=== PATIENT | male | born 1975 | race Caucasian/White ===

== ENCOUNTER 2025-01-03 15:53 | Day surgery (SDC) | payer SELFPAY ==
[2025-01-03] VITALS (12 sets, daily range): BP systolic 124–149; BP diastolic 66–89; PULSE 62–80; RESP 16–20; TEMP 36.4–37.4; O2SAT 94–98; BMI 28.5
--- OUTSIDE RECORDS SUMMARY | 2025-01-03 15:55 | XMS_ITS | Clinical Summary ---
Author Organization [facility] Address [address] [place] [id number] Care Team Providers Care Cat Dog Or Other Pet Groomer Name Role Phone Pcp, No Primary Care Provider Unavailabl e Allergies No known active allergies Medications CPAPIndications :Obstructive sleep apnea (adult) (pediatric) autoCPAP, heated humidifier, mask, headgear, filters and tubing. 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 Gender Identity Not on file Sexual Orientation Not on file Obstetrics History Last Filed Vital Signs Vital Sign Reading Time Taken Comments Blood Pressure 122/77 12/18/2016 4:49 PM CDT Pulse 71 12/18/2016 4:49 PM CDT Temperature 36.6 C (97.8 F) 12/18/2016 4:49 PM CDT Respiratory Rate - - Oxygen Saturation 97% 12/18/2016 4:49 PM CDT Inhaled Oxygen Concentration - - Weight 81.8 kg (180 lb 6.4 oz) 12/18/2016 4:49 P M CDT Height 179 cm (5' 10.47) 12/18/2016 4:49 PM CDT Body Mass Index 25.54 12/18/2016 4:49 PM CDT Plan of Treatment Health Maintenance Due Date Last Done Comments HIV for age 15-65 12/02/1991 Hepatitis C screening for ag e 18-79 1994 Hepatitis B series for 19+ ( 1 of 3 - 19+ 3-dose series) 12/02/1995 BMI (ht and wt on same day) for age 18+ 12/18/2017 12/18/2016 Depression screening for age 12+ 12/18/2017 12/19/19 17 Colonoscopy through age 75 2021 Lipids for age 45-75 2021 COVID-19 vaccine series ( - 2023- season) 2024 Tetanus booster 01/23/2024 01/22/2014 Influenza Vaccine (#1) 2025 Pneumococcal series for age 6-49 Aged Out No longer eligible based on patient's age to complete this topic Care Teams Cat Dog Or Other Pet Groomer Relationship Specialty Start Date End Date Pcp, No . PCP - General 10/11/20
--- NOTE | 2025-01-03 16:13 | ED.ABDPAIN ---
HPI - Abdominal Pain General Time Seen by Provider: 16:13 Date Seen: 01/03/25 Chief Complaint: Abdominal Pain Stated Complaint: Abd pain Time Seen by Provider: 01/03/25 16:13 Source: patient, family and RN notes reviewed Mode of arrival: ambulatory Limitations: no limitations History of Present Illness HPI narrative: Froylan is a very pleasant 49-year-old male previously healthy with no history of abdominal surgeries who notes the onset of abdominal pain last evening after eating pizza. Patient had had a normal day, no trauma but after eating pizza had discomfort pressure type sensation around his belly button. This continued overnight and is occasionally associated with nausea but no vomiting, no fever and no diarrhea. He did have a bowel movement early this morning but it did not really change the pain. Now he has pain in the right lower quadrant that he describes as sure. He has not had any bulging in the abdomen. Denies a history of cough cold congestion fever chills, tobacco use, alcohol use or drug use. Personal or family history of problems with anesthesia. Denies any recent chest pain. Related Data Home Medications ?Medication ?Instructions ?Recorded ?Confirmed No Known Home Medications 01/03/25 01/03/25 Allergies Allergy/AdvReac Type Severity Reaction Status Date / Time No Known Drug Allergies Allergy Verified 01/03/25 16:11 Review of Systems Status of ROS Reports: 10 or more systems reviewed and unremarkable except as noted in History and below Const Denies: fever, chills or fatigue Eyes Denies: change in vision ENMT Denies: throat pain, neck pain or nasal congestion Cardio Denies: chest pain, swelling of feet/ankles or shortness of breath with exertion Resp Denies: shortness of breath or cough GI Reports: abdominal pain and nausea; Denies: vomiting, diarrhea or blood in stool Denies: painful urination, urinary frequency, urinary urgency or blood in urine Musculo Denies: neck pain Neuro Denies: headache Endo Denies: fatigue PFSH PFSH Social History Smoking Status: Never smoker How often do you have a drink containing alcohol: monthly or less How many standard drinks containing alcohol do you have on a typical day: 1 or 2 How often do you have six or more drinks on one occasion: Never AUDIT-C Alcohol total score: 1 Non-prescribed substance use: denies use service: No Exam Narrative: Exam Narrative: Froylan is alert and oriented no acute distress. Head is atraumatic normocephalic. Face symmetrical. Oral cavity moist mucous membranes. Dentition intact. Posterior oropharynx visualized. External ears eyes nose clear. Heart with regular rate and rhythm and lungs are clear to auscultation. Abdomen is soft. No significant tenderness with palpation around the umbilicus. Bowel sounds are present but decreased. Positive right lower quadrant tenderness with rebound. Lower extremities without edema. Pedal pulses are intact. Const: Vital Signs, click to edit/add: Vital Signs - 24 hr 01/03/25 15:59 Temperature 97.6 F Pulse Rate [Pulse Oximeter] 80 Respiratory Rate 16 Blood Pressure [Ri ght Upper Arm] 149/89 H Pulse Oximetry 98 Oxygen Delivery Me thod Room Air Documenting provider has reviewed patient's vital signs: yes Course Course ED Course: Differential diagnosis includes but is not limited to appendicitis, diverticulitis, colitis, internal hernia, viral gastroenteritis, kidney stone/ureteral colic, UTI. Will place IV in use Toradol 15 mg and Zofran 4 mg for comfort. 1 L of normal saline is also ordered. Plan on CBC, comprehensive panel, urinalysis, lipase, lactate, CRP as well as abdominal CT. Reevaluation(s) Reevaluation #1: Abdominal CT appears to show acute appendicitis. Have ordered EKG and chest x-ray as I suspect this gentleman will need to go to the OR. However, patient is under 50 years of age, has no history of asthma, tobacco use or underlying cardiac or lung problems and therefore will cancel chest x-ray. Consultations Consultation #1: Had the pleasure of speaking with Dr. Giron, our surgical pathologist, and will plan on appendectomy tomorrow morning. Unfortunately patient had a cheese stick at approximately 1515 hours. Vital Signs Vital signs: Initial Vital Signs Temperature 97.6 F 01/03/25 15:59 Temperature Source Temporal Artery Scan 01/03/25 15:59 Pulse Rate 80 01/03/25 15:59 Respiratory Rate 16 01/03/25 15:59 Blood Pressure 149/89 H 01/03/25 15:59 Blood Pressure Mean 109 H 01/03/25 15:59 Blood Pressure Position Sitting 01/03/25 15:59 Pulse Oximetry 98 01/03/25 15:59 Oxygen Delivery Method Room Air 01/03/25 15:59 Vital Signs Temperature 97.6 F 01/03/25 15:59 Pulse Rate 80 01/03/25 15:59 Respiratory Rate 16 01/03/25 15:59 Blood Pressure 149/89 H 01/03/25 15:59 Pulse Oximetry 98 01/03/25 15:59 Oxygen Delivery Method Room Air 01/03/25 15:59 Temperature 97.6 F 01/03/25 15:59 Pulse Rate 80 01/03/25 15:59 Respiratory Rate 16 01/03/25 15:59 Blood Pressure 149/89 H 01/03/25 15:59 Pulse Oximetry 98 01/03/25 15:59 Oxygen Delivery Method Room Air 01/03/25 15:59 Medications Administered Medications: Generic Name Dose Route Start Last Admin Trade Name Freq PRN Reason Stop Dose Admin Sodium Chloride 1,000 mls @ 125 mls/hr 01/03/25 18:29 01/03/25 18:44 0.9 % Sodium Chloride 1000 Ml IV 125 mls/hr .Q8H MARCELA Administration Discontinued Medications Generic Name Dose Route Start Last Admin Trade Name Freq PRN Reason Stop Dose Admin Sodium Chloride 1,000 mls @ 1,000 mls/hr 01/03/25 16:23 01/03/25 17:55 0.9 % Sodium Chloride 1000 Ml IV 01/03/25 17:22 Infused .Q1H MARCELA Infusion Piperacillin Sod/Tazobactam 100 mls @ 200 mls/hr 01/03/25 18:28 01/03/25 18:44 Sod 3.375 gm/ Sodium Chloride IVPB 01/03/25 18:29 200 mls/hr ONCE ONE Administration Ketorolac Tromethamine 15 mg 01/03/25 16:22 01/03/25 16:58 Ketorolac 15 Mg/Ml Inj IVP 01/03/25 16:23 15 mg ONCE ONE Administration Ondansetron HCl 4 mg 01/03/25 16:22 01/03/25 16:59 Ondansetron 2 Mg/Ml Inj IVP 01/03/25 16:23 4 mg ONCE ONE Administration MDM - Abdominal Pain MDM Narrative Medical decision making narrative: 1. Acute appendicitis-onset of pain last evening with increasing right lower quadrant pain today associated with leukocytosis and nausea. patient has remained stable in the emergency room. He did have a CT confirmed appendicitis with appendicoliths and dilation of the appendix to 1.2 cm. At this time he unfortunately had food coming in to the ER and therefore we will admit to the hospital, NPO after midnight, Zosyn as his antibiotic until he goes to surgery tomorrow morning. 2. Abdominal pain-improved with Toradol Zofran and fluids. 3. Disposition-admit to same-day surgery. I have spoken with surgeon Dr. Giron. Dr. Stevenson hospitalist accepts this patient. Lab Data Attestation: I reviewed the patient's lab results. Labs: Lab Results 01/03/25 Range/Units 16:22 WBC 18.03 H (4.50-11.00) K/uL RBC 5.84 (4.30-5.90) m/uL Hgb 18.3 H (13.5-17.5) gm/dL Hct 52.5 (37.0-53.0) % MCV 90 (80-100) fL MCH 31 (26-34) pg MCHC 35 (32-36) gm/dL RDW Coeff of Cj 11.7 (11.5-15.5) % Plt Count 295 (140-440) K/uL Neut % (Auto) 85.1 H (42.0-72.0) % Lymph % (Auto) 7.7 L (20-44) % [place] % (Auto) 6.6 (0.0-11.0) % Eos % (Auto) 0.2 (0.0-7.0) % Baso % (Auto) 0.2 (0.0-3.0) % Neut # (Auto) 15.30 H (1.7-7.0) K/uL Lymph # (Auto) 1.40 (0.90-2.90) K/uL [place] # (Auto) 1.20 H (0.00-0.90) K/UL Eos # (Auto) 0.00 (0.00-0.50) K/uL Baso # (Auto) 0.00 (0.00-0.30) K/uL Abs Immat Gran (auto) 0.00 (0.00-0.30) K/uL Imm/Tot Granulo (auto) 0.2 % Sodium 137 (135-149) mmol/L Potassium 3.8 (3.6-5.1) mmol/L Chloride 98 (96-114) mmol/L Carbon Dioxide 29 (20-32) mmol/L Anion Gap 10 (7-15) mEq/L BUN 12 (5-24) mg/dL Creatinine 0.8 (0.5-1.5) mg/dL Estimated Creat Clear 120.27 Estimated GFR 109 ml/min Glucose 114 (60-115) mg/dL Lactate 1.7 (0.5-1.9) mmol/L Calcium 9.8 (8.4-10.6) mg/dL Total Bilirubin 2.4 H (0.1-1.5) mg/dL AST 33 (12-35) U/L ALT 35 (4-50) U/L Alkaline Phosphatase 57 (40-150) U/L C-Reactive Protein 1.3 H (0.5-1.0) mg/dL Total Protein 8.6 H (6.0-8.3) g/dL Albumin 5.0 (3.3-5.0) g/dL Lipase 42 (23-300) U/L Urine Color Yellow (Yellow) Urine Appearance Clear (Clear) Urine pH 5.5 (5.0-8.5) Ur Specific [place] <= 1.005 (1.000-1.030) Urine Protein Negative (Negative) Urine Glucose (UA) Negative (Negative) Urine Ketones Negative (Negative) Urine Blood Trace-intact A (Negative) Urine Nitrite Negative (Negative) Urine Bilirubin Negative (Negative) Urine Urobilinogen 0.2 (0.2-1.0) Ur Leukocyte Esterase Negative (Negative) Urine RBC 2-5 A (0-2) Urine WBC 0-2 (0-5) Ur Squamous Epith Cells None (None-Few) Urine Bacteria None (None) Imaging Data CT scan - abdomen: Attestation: I have reviewed the pertinent imaging results. My impression: Appendicitis Radiologist's impression: Lower chest: Unremarkable. Liver: Unremarkable. Normal in size and attenuation. No suspicious masses. Gallbladder and bile ducts: Cholelithiasis. No inflammation or biliary ductal dilation. Pancreas: Unremarkable. No mass or inflammation. Spleen: Unremarkable. Normal in size. No masses. Adrenal glands: Unremarkable. No nodules. Kidneys: Unremarkable. No suspicious masses, stones, or hydronephrosis. GI tract: Dilated appendix measuring 1.2 cm containing appendicolith at the base. Mild periappendiceal inflammatory stranding. No perforation or evidence for abscess formation. The small and large bowel are unremarkable. Normal appendix. Vasculature: Abdominal aorta is normal in caliber. Mesenteric arteries are patent. Lymph nodes: No lymphadenopathy. Peritoneum/Abdominal Wall: Unremarkable. No free air or significant free fluid. Pelvis: Unremarkable. Bones: Left L5 pars interarticularis defect. No anterolisthesis. Otherwise, unremarkable for age. IMPRESSION: Acute uncomplicated appendicitis in the right lower quadrant. ECG Data Attestation: I personally reviewed and interpreted this ECG as follows: ECG interpretation date: 01/03/25 Interpretation: EKG by my read shows sinus rhythm at a rate of 74. No acute ST or T-wave changes. Normal QT and [place] intervals. Discharge Plan Discharge Clinical Impression: Acute appendicitis Qualifiers: Acute appendicitis type: unspecified acute appendicitis type Qualified Code(s): K35.80 - Unspecified acute appendicitis Patient Disposition: XFER to OR Condition: Improved
--- NOTE | 2025-01-03 16:22 | CRLHL7_ITS ---
For Patients: As a result of the Century Cures Act, medical imaging exams and procedure reports are released immediately into your electronic medical record. You may view this report before your referring provider. If you have questions, please contact your health care provider. INDICATION: Periumbilical pain, now right lower quadrant. TECHNIQUE: CT abdomen and pelvis acquired with 101 cc of Isovue 370 IV contrast. COMPARISON: None. FINDINGS: Lower chest: Unremarkable. Liver: Unremarkable. Normal in size and attenuation. No suspicious masses. Gallbladder and bile ducts: Cholelithiasis. No inflammation or biliary ductal dilation. Pancreas: Unremarkable. No mass or inflammation. Spleen: Unremarkable. Normal in size. No masses. Adrenal glands: Unremarkable. No nodules. Kidneys: Unremarkable. No suspicious masses, stones, or hydronephrosis. GI tract: Dilated appendix measuring 1.2 cm containing appendicolith at the base. Mild periappendiceal inflammatory stranding. No perforation or evidence for abscess formation. The small and large bowel are unremarkable. Normal appendix. Vasculature: Abdominal aorta is normal in caliber. Mesenteric arteries are patent. Lymph nodes: No lymphadenopathy. Peritoneum/Abdominal Wall: Unremarkable. No free air or significant free fluid. Pelvis: Unremarkable. Bones: Left L5 pars interarticularis defect. No anterolisthesis. Otherwise, unremarkable for age. IMPRESSION: Acute uncomplicated appendicitis in the right lower quadrant. Please note that all CT scans at this facility use dose modulation, iterative reconstruction, and/or weight-based dosing when appropriate to reduce radiation dose to as low as reasonably achievable. Dictated by Jerome Najera MD @ 01/03/2025 6:13:09 PM (Electronically Signed)
[2025-01-03 16:58] LABS: Lactate* 1.7 mmol/L (0.5-1.9)
[2025-01-03] MEDS: ONDANSETRON 2 MG/ML inj 4 MG IVP (16:59)
[2025-01-03 17:09] LABS: Hematocrit 52.5 % (37.0-53.0); Hemoglobin* 18.3 gm/dL (13.5-17.5); Immature Granulocytes Pct Auto 0.2 %; Mean Corpuscular HGB Conc 35 gm/dL (32-36); Mean Corpuscular Hemoglobin 31 pg (26-34); Mean Corpuscular Volume 90 fL (80-100); RDW Coefficient of Variation % 11.7 % (11.5-15.5); Red Blood Count 5.84 m/uL (4.30-5.90); White Blood Count* 18.03 K/uL (4.50-11.00)
[2025-01-03 17:12] LABS: Immature Granulocytes Abs Auto 0.00 K/uL (0.00-0.30); Lymphocytes Absolute Auto 1.40 K/uL (0.90-2.90); Slide Review Reflex No
[2025-01-03 17:13] LABS: Albumin* 5.0 g/dL (3.3-5.0); Chloride* 98 mmol/L (96-114)
[2025-01-03 17:14] LABS: Potassium* 3.8 mmol/L (3.6-5.1); Sodium* 137 mmol/L (135-149)
[2025-01-03 17:16] LABS: Alanine Aminotransferase* 35 U/L (4-50); Aspartate Amino Transferase* 33 U/L (12-35); Blood Urea Nitrogen* 12 mg/dL (5-24); Creatinine* 0.8 mg/dL (0.5-1.5); Est. Creatinine Clearance* 120.27; Estimated Glomerular Filt Rate 109 ml/min
[2025-01-03 17:17] LABS: Alkaline Phosphatase* 57 U/L (40-150); Anion Gap 10 mEq/L (7-15); Bilirubin Total* 2.4 mg/dL (0.1-1.5); Calcium* 9.8 mg/dL (8.4-10.6); Carbon Dioxide* 29 mmol/L (20-32); Glucose* 114 mg/dL (60-115); Total Protein* 8.6 g/dL (6.0-8.3)
[2025-01-03 18:10] LABS: Appearance Urine Clear (Clear)
[2025-01-03] MEDS: PIPERACILLIN/TAZOBACTAM 3.375 GM in 0.9 % SODIUM CHLORIDE Mini-bag 100 ML IVPB (18:44)
--- NOTE | 2025-01-03 20:46 | P.GSHP_ITS ---
History of Present Illness History of Present Illness Date Seen: 01/03/25 Chief complaint: Abd pain Narrative: Froylan Castañeda is a 49 year old male who presented to the emergency department with 24 hours worsening abdominal pain. The pain will come up at 3:00 a.m. from sleep. It started as generalized discomfort in his abdomen. Throughout the day began to worsen and moved to the right side. He has never had pain like this before. He does report a decrease in appetite. No nausea or vomiting. He is having regular bowel movements. He has never had surgery before. Patient is otherwise healthy. 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 Review of Systems Status of ROS: Reports: 10 or more systems reviewed and unremarkable except as noted in History and below [facility] Social History Smoking Status: Never smoker How often do you have a drink containing alcohol: monthly or less How many standard drinks containing alcohol do you have on a typical day: 1 or 2 How often do you have six or more drinks on one occasion: Never AUDIT-C Alcohol total score: 1 Non-prescribed substance use: denies use service: No Meds Home Medications and Allergies Home Medications ?Medication ?Instructions ?Recorded ?Confirmed ?Type No Known Home Medications 01/03/2512/19 History Allergies Allergy/AdvReac Type Severity Reaction Status Date / Time No Known Drug Allergies Allergy Verified 01/03/25 16:11 Exam Narrative: Exam Narrative: General: Alert and oriented, no acute distress Respiratory: Clear breath sounds bilaterally, maintained on room air CV: Well perfused, regular rhythm and rate Abdomen: Soft, tender to palpation right lower quadrant with some guarding. No rebound Const: Vital Signs, click to edit/add: Vital Signs - 24 hr 01/03/25 15:59 01/03/25 19:45 Temperature 97.6 F 98.7 F Pulse Rate [Pulse Oximeter] 80 Pulse Rate [Right Radial] 68 Respiratory Rate 16 16 Blood Pressure [Le ft Arm] 145/81 H Blood Pressure [Ri ght Upper Arm] 149/89 H Pulse Oximetry 98 98 Oxygen Delivery Me thod Room Air Room Air Results Results Labs: Leukocytosis (18) Abdomen CT scan report/results: report reviewed and image reviewed Progress Note:A&P Assessment and plan (1) Acute appendicitis: Status: Acute Assessment and Plan: The patient presented with a history, exam and imaging findings consistent with acute appendicitis. I discussed the treatment options with the patient including non-surgical and surgical options. I recommended laparoscopic appendectomy. The risks of surgery were reviewed with the patient including the risks of bleeding, post-operative wound or intra-abdominal infection, injury to abdominal structures and possible conversion to an open operation. We also discussed anesthetic complications including TX, stroke, respiratory failure and blood clots. The patient voiced an understanding of our conversation, had the opportunity to ask questions, agreed to accept the risks of surgery and asked that we proceed with surgery. Plan OR for laparoscopic appendectomy
[2025-01-03] MEDS: LACTATED RINGERS 1000 ML 1,000 ML 125 ML IV (21:51)
--- NOTE | 2025-01-03 21:52 | P.ANES_ITS ---
Anesthesia Charges Start Date/Time Anesthesia Start Date: 01/03/25 Anesthesia Start Time: 21:21 Stop Date/Time Anesthesia Stop Date: 01/03/25 Anesthesia Stop Time: 22:57 Summary Emergency: MARKETING TECHNOLOGY COORDINATOR Coding CPT Codes CPT Codes: ANESTH SURG LOWER ABDOMEN - 39433 ([id number]) P1 - NORMAL HEALTHY PATIENT, QZ - MARKETING TECHNOLOGY COORDINATOR SVC W/O MANAGEMENT PLANNER BY Additional Codes: Summary - Emergency: MARKETING TECHNOLOGY COORDINATOR ([id number])
--- NOTE | 2025-01-03 21:52 | W.ANESCHARGE ---
Anesthesia Charges Start Date/Time Anesthesia Start Date: 01/03/25 Anesthesia Start Time: 21:21 Stop Date/Time Anesthesia Stop Date: 01/03/25 Anesthesia Stop Time: 22:57 Summary Emergency: GLASSWARE FINISHER Coding CPT Codes CPT Codes: ANESTH SURG LOWER ABDOMEN - 12590 ([id number]) P1 - NORMAL HEALTHY PATIENT, QZ - GLASSWARE FINISHER SVC W/O LEAD REFINERY SUPERVISOR BY Additional Codes: Summary - Emergency: GLASSWARE FINISHER ([id number])
[2025-01-03] MEDS: BUPIVACAINE 0.25% 30 ML INJECTION (22:34)
--- NOTE | 2025-01-03 22:46 | PM.GSPRC ---
Operative Note Date of procedure: 01/03/25 Pre-op diagnosis: Acute appendicitis Post-op diagnosis: Same, non perforated Type of Procedure: Laparoscopic appendectomy Indications: Patient is a 49-year-old male with clinical workup in symptoms consistent with acute appendicitis. Risks and benefits of operative intervention were discussed at length with the patient. Risks included but was not limited to: Bleeding, infection, risk of damage to surrounding structures, possible need for additional procedures, possible need to convert to an open operation and postoperative complications such as pneumonia, pulmonary emboli or ID. All questions and concerns were addressed with the patient agreeing to proceed. Procedure Description: After discussing the risks and benefits of the procedure, the patient signed informed consent.? The operative site was marked and the patient was brought to the operating room and placed on the operating table in supine position.? Care was taken to pad the patient's pressure points.?? The patient was then intubated by anesthesia.?? The operative site was then prepped and draped in the usual sterile fashion.? A time-out was then performed. Entrance to the abdomen was obtained via a 5 mm optical trocar in the left upper quadrant. The abdomen was insufflated and briefly surveyed for any signs of injury. There were none. A 12 mm port was placed lateral to the umbilicus as well as a 5 mm port in the left lower quadrant under direct vision. The patient was then placed in Trendelenburg position with the right side up. The small bowel was gently moved out of the way and the appendix was in view. The base of the appendix had some overlying fibrinous exudate. I began dissection laterally freeing up the lateral abdominal wall attachments. The body of the appendix extended retrocecal. The tip was identified and the entire appendix pulled into view. Further dissection was performed carefully with cautery on surrounding inflammatory attachments. A mesenteric window was created between the base of the appendix and the mesoappendix. A 30 mm Endo-WEI purple load stapler was then used to transect the appendix at its base. A 30 mm and 2nd 45 mm vascular load stapler was then used to take the mesoappendix. The staple lines were inspected for bleeding. A small area of arterial bleeding on the mesentery was controlled with a three 5 mm clips. The appendix was then removed from the abdomen using an Endo-Catch bag. The specimen was sent to pathology. Local irrigation was performed in the right lower quadrant. All intra-abdominal fluid was suctioned. The ports were removed under direct visualization. The 12 mm port site fascia was closed with 0 Vicryl. The skin was then closed with absorbable subcuticular suture. Sterile dressings were then applied. Instrument sponge and needle counts were correct at the end of the case. The patient was then woken and transported to the PACU in stable condition. Findings: Inflamed appendix, non perforated Anesthesia: GETA Surgeon: Enid Giron MD Estimated blood loss (mL): 10 Specimen: Appendix Condition: stable Disposition: PACU
[2025-01-04] VITALS (11 sets, daily range): BP systolic 119–131; BP diastolic 58–77; PULSE 60–84; RESP 16; TEMP 36.7–36.9; O2SAT 95–98
[2025-01-04] MEDS: ONDANSETRON 2 MG/ML inj IVP (00:03)
--- NOTE | 2025-01-04 03:26 | PC.NURSE ---
Per , Pt to be Saline locked once tolerating liquids, crackers, and up voiding. Pt SL @ 3110 by RN
--- NOTE | 2025-01-04 04:19 | PC.NURSE ---
Pt recovering from Sx well. 3 Lap sites CDI. Pain controlled. Nausea controlled. Tolerating advancing diet. Pt up IND and voiding. States Pt is able to discharge in am if no complications are present without seeing
--- NOTE | 2025-01-04 09:19 | PC.NURSE ---
Pt is doing well this morning. VSS. Denies pain. Denies nausea. Tolerating regular diet. Voiding without problems. Ambulating independently. Surgical incisions are clean, dry and intact. Pt belongings page and discharge instructions signed. Pt does not have any questions or concerns at this time. Pt is discharging home via .
== END 2025-01-04 09:25 | disposition home or self-care (01) ==
LOC: ED 18:37 → SS 20:18 → MEDSURG 20:41
PROVIDERS: Emergency Provider Family Medicine; PCP Internal Medicine; Visit Provider Surgery
PROC: 0DTJ4ZZ Resection of Appendix, Percutaneous Endoscopic Approach (ICD-10-PCS; CPT 44970; principal; 2025-01-03 21:00)
DX: K35.80 Unspecified acute appendicitis (principal)
CPT/HCPCS: 44970; 00840; 36415; 74177; 80053; 81001; 83605; 83690; 85025; 86140; 88304; 93005; 99140; 99284; 99285; J0330; J0665; J1100; J1885; J2405; J2543; J2704; J3490; J7030; J7120; Q9967